=== PATIENT | female | born 1995 | race African-American/Black ===

== ENCOUNTER 2018-12-08 13:51 | Emergency (ER) | payer SELFPAY ==
[~2018-12-08] VITALS: Ht 160 cm; Wt 53.0 kg
[2018-12-08 16:13] VITALS: BP 106/60
== END 2018-12-08 17:38 | disposition left against medical advice (07) ==
LOC: ER 16:55
DX: Z53.21 Procedure and treatment not carried out due to patient leaving prior to being seen by health care provider (principal)